=== PATIENT | male | born 1990 | race Caucasian/White ===

== ENCOUNTER 2024-06-10 07:03 | Emergency (ER) | payer BC ==
[~2024-06-10] VITALS: Ht 165.1 cm; Wt 56.2 kg
[~2024-06-10 07:03] MED LIST: NORCO 5-325 TA1 EACH PO; PREDNISONE20 MG PO; VENTOLIN HFA18 GM INH
[2024-06-10] MEDS ORDERED: ASPIRIN 81 MG CHEW PO ONE (07:15)
[2024-06-10] MEDS ORDERED: NITROGLYCERIN 0.4 MG SUBL SL PRN (07:15)
[2024-06-10 07:18] LABS: BASOPHILS 0.8 % (0-2); EOSINOPHILS 5.1 % (0-6); HEMATOCRIT 47.6 % (35.0-50.0); HEMOGLOBIN 16.5 g/dL (12.0-18.0); LYMPHOCYTES 23.8 % (24-44); MCH 32.3 (27-36); MCHC 34.7 g/dl (30-36); MCV 93.1 fl (81-99); MONOCYTES 8.1 % (0-12); NEUTROPHILS 62.2 % (39-80); PLATELET COUNT 234 K/uL (140-440); RBC 5.12 M/ul (4.3-5.7); RDW 12.5 (10.5-15.0)
[2024-06-10 07:35] LABS: ALBUMIN 4.7 g/dL (3.4-5.0); ALBUMIN/GLOBULIN RATIO 1.34 (1.1-2.4); ANION GAP 14.1 (7-21); BILIRUBIN, TOTAL 0.9 mg/dL (0.2-1.0); BUN/CREATININE RATIO 8.77 (6.0-28.6); CALCIUM 9.9 mg/dL (8.5-10.1); CREATININE, SERUM 1.14 mg/dL (0.70-1.30); MAGNESIUM 1.6 mg/dL (1.8-2.4); POTASSIUM 3.1 mmol/L (3.5-5.1); PROTEIN, TOTAL 8.2 g/dL (6.4-8.2)
[2024-06-10 08:40] VITALS: BP 95/64
--- NOTE | 2024-06-10 13:01 | EKG ---
[facility] [address] [facility] [place] [address] Signed Undetermined rhythm Otherwise normal ECG When compared with ECG of 31-MAR-2016 16:53, Current undetermined rhythm precludes rhythm comparison, needs review Confirmed by Fabrizio Fitzgerald DO ([id number]) on 06/10/2024 1:01:32 PM Electronically Signed By: FABRIZIO FITZGERALD DO 06/10/24 1301 PATIENT NAME: BRANDIE VALDEZ Electrocardiogram DATE OF : [birth year] PHYSICIAN: FABRIZIO FITZGERALD DO REPORT #: [id number] REPORT IS CONFIDENTIAL AND NOT TO BE RELEASED WITHOUT AUTHORIZATION
== END 2024-06-10 08:40 | disposition home or self-care (01) ==
LOC: ED 07:03
PROVIDERS: Emergency Medicine
DX: R07.89 Other chest pain (principal); R25.2 Cramp and spasm; J45.909 Unspecified asthma, uncomplicated; F17.200 Nicotine dependence, unspecified, uncomplicated
CPT/HCPCS: 36415; 71045; 80053; 83735; 84484; 85025; 85379; 93005; 93010; 99285-25

== ENCOUNTER 2025-01-05 09:00 | Day surgery (SDC) | payer OTHER ==
[~2025-01-05] VITALS: Ht 175.3 cm; Wt 58.0 kg
[~2025-01-05 09:00] MED LIST changes: +ACETAMINOPHEN 1,000 MG/100 ML VIAL ONE; +CEFAZOLIN SODIUM 2 GM in SODIUM CHLORIDE 0.9% 100 ML IV SCH; +IBLOOD GLUCOSE TEST STRIP 1 EA TEST VI PRN; +LACTATED RINGER'S 1,000 ML IV SCH; +LIDOCAINE HCL 1% 5 ML SDV INJ ONE; +LIDOCAINE HCL 2% 20 MG/ML VIAL INJ ONE; +MIDAZOLAM HCL 2 MG/2 ML VIAL ONE; +Ropivacaine HCl 0.5% 30 ML VIAL ONE; +SODIUM CHLORIDE 0.9% 20 ML IV ONE; +fentaNYL citrate 100 MCG/2 ML VIAL ONE
[2025-01-05 09:05] VITALS: BP 107/62
[2025-01-05] MEDS ORDERED: PROCHLORPERAZINE EDISYLATE 10 MG/2 ML VIAL IV PRN (11:15)
[2025-01-05] MEDS ORDERED: IBLOOD GLUCOSE TEST STRIP 1 EA TEST VI PRN (11:15)
[2025-01-05] MEDS ORDERED: NALOXONE HCL 0.4 MG SYR IV PRN (11:15)
[2025-01-05] MEDS ORDERED: fentaNYL citrate 50 MCG/ML SDV IV PRN (11:15)
[2025-01-05] MEDS ORDERED: HYDROmorphone HCL 1 MG/ML SYR IV PRN (11:15)
[2025-01-05] MEDS ORDERED: KETOROLAC TROMETHAMINE 30 MG/ML VIAL IV PRN (11:15)
--- NOTE | 2025-01-05 12:07 | NUR ---
01/05/25 1206 Angelica Vann 1203-PATIENT ARRIVED TO PACU ON 6L MASK NONAROUSABLE ORAL AIRWAY IN PLACE RR EVEN. SINUS BRADYCARDIA HR 50'S. IVF INFUSING. PATIENT HAS HOB ELEVATED. INCISION INTACT NO DRAINAGE.
[2025-01-05] MEDS ORDERED: HYDROCODONE/ACETA 5/325 TAB PO PRN (12:30)
[2025-01-05 12:47] VITALS: BP 120/74
--- NOTE | 2025-01-05 12:53 | NUR ---
1240 PT BACK TO ROOM IN DS. PT ALERT AND AWAKE, HE DENIES PAIN AND NAUSEA. PT REPORTS FEELING COLD SAMSON HUGGER PLACED BTWN BLANKETS. HIS MOM AND DAD ARE AT BEDSIDE. CALL LIGHT WITH IN REACH. PT TAKING SIPS OF WATER TOLERATES WELL.
[2025-01-05 13:25] VITALS: BP 126/76
--- NOTE | 2025-01-05 14:13 | NUR ---
1330 PT AWAKE AND ALERT DENIES PAIN AND NAUSEA PT DRINKING CRANBERRY JUICE TOLERATES WELL. DISCHARGE INSTRUCTIONS GIVEN TO PT AND BOTH PARENTS ALL VOICED UNDERSTANDING. PT REPORTS NEEDING TO VOID. PT STOOD AT THE EDGE OF BED AND REALIZED HIS LT LEG WAS NOT GOING HOLD HIM UP. HARMONY JENSEN DID A LT INGUINAL AND LT HYPOGASTIC BLOCK, PREOPERIVELY, WHICH EXTENTED DOWN INTO HIS LT UPPER QUADRICEP MUSCLE. HARMONY JENSEN NOTIFIED. HARMONY JENSEN CAME INTO PT ROOM TO EVALUATED PT. HARMONY GAVE OK FOR PT TO BE DISCHARGED TO HOME LONG HE HAS HELP WHEN HE GETS HOME. PT LIVES WITH HIS OLDER BROTHER AND HE WILL BE AVAILABLE TO ASSIST HIM IN ANYWAY. PT WAS ABLE TO VOID 150ML CLEAR YELLOW URINE USING COMMOD AT BEDSIDE PT ABLE TO TRANSFER HIMSELF FROM BED TO COMMOD AND FROM BED INTO WHEEL CHAIR. CMS IN TACT TO BOTH LEGS. PT REPORTS UPPER QUADRICEP ON LT LEG FEEL NUMB BUT THE REST OF HIS LEG FEELS NORMAL.
--- NOTE | 2025-01-09 12:35 | PATH ---
[facility] [address] [facility], [place] [address] Signed SPECIMEN(S): A LEFT INGUINAL HERNIA SAC SPECIMEN SOURCE: A. LEFT INGUINAL HERNIA SAC CLINICAL HISTORY: Left inguinal hernia FINAL PATHOLOGIC DIAGNOSIS: Left inguinal hernia sac: - Benign fibromembranous tissue consistent with clinical hernia sac, negative for atypical features. JVR:clv MICROSCOPIC EXAMINATION: Histologic sections of all submitted blocks are examined by light microscopy. These findings, together with the gross examination, support the pathologic diagnosis. GROSS DESCRIPTION: The specimen, labeled and designated "Chary, left inguinal hernia sac," is received in formalin and consists of a saclike portion of pink-cheatham to red-brown soft membranous tissue and yellow-cheatham fatty tissue (5.2 x 0.2 x 0.4 cm). The tissue is serially sectioned to reveal yellow to pink-cheatham soft cut surfaces. Automobile Mechanic Assistant sections are submitted in cassette (A1). VB (under the direct supervision of a pathologist) The Gross Description was prepared using a voice recognition system. The report was reviewed for accuracy; however, sound-alike word errors, addition and/or deletions may occur. If there is any question about this report, please contact Client Services. PERFORMING LABORATORY: Technical component was performed by [facility], [address] [place] [id number] (CLIA# [id number]). Professional interpretation was performed by [facility], [address] [place] [id number] (CLIA#: [id number]). Diagnostician: Raghu Selby MD Pathologist Electronically Signed 01/09/2025 PATIENT NAME: BRANDIE VALDEZ PATHOLOGY DATE OF : 89 REPORT #: [id number] PHYSICIAN: [facility] PCP: ALEC SAUER MD REPORT IS CONFIDENTIAL AND NOT TO BE RELEASED WITHOUT AUTHORIZATION [address] [address] Signed Copies: ~ PATIENT NAME: BRANDIE VALDEZ PATHOLOGY DATE OF : [birth year] REPORT #: [id number] PHYSICIAN: [facility] PCP: ALEC SAUER MD REPORT IS CONFIDENTIAL AND NOT TO BE RELEASED WITHOUT AUTHORIZATION
== END 2025-01-05 13:45 | disposition home or self-care (01) ==
LOC: OPS 09:00 → DS 09:00 → OPS 10:00
PROVIDERS: ATTEND Surgery
PROC: 3E0T3BZ Introduction of Anesthetic Agent into Peripheral Nerves and Plexi, Percutaneous Approach (ICD-10-PCS; 2025-01-05)
PROC: 0YU60JZ Supplement Left Inguinal Region with Synthetic Substitute, Open Approach (ICD-10-PCS; principal; 2025-01-05 11:00)
DX: K40.90 Unilateral inguinal hernia, without obstruction or gangrene, not specified as recurrent (principal); F31.9 Bipolar disorder, unspecified; F17.210 Nicotine dependence, cigarettes, uncomplicated
CPT/HCPCS: 00830; 64425; 76942; C1781; J0131; J0688; J2250; J2405; J2704; J2795; J3010; J7121